=== PATIENT | female | born 1930 | race Caucasian/White ===

== ENCOUNTER 2019-06-12 15:18 | Emergency (ER) | payer MEDICARE, BC ==
[~2019-06-12] VITALS: Ht 160 cm; Wt 83.6 kg
[~2019-06-12 15:18] MED LIST: ALEVE 220MG220 MG PO; ASPI325T6 PO; ASPIRIN 81M81 MG/TA2 PO; CALTRATE 600600 MG PO; CELEBREX 200MG200 MG PO; INDERAL40 MG PO; LASIX 20MG TABL20 MG PO; MIRALAX PA17 GM/Dose PO; MYSOLINE 250MG250 MG PO; NORCO 325 MG-51 TAB PO; NORCO 325 MG-7.1 TAB PO; PRINZIDE 12.5 M1 TA1 PO; PROMETHAZINE V473 M2 PO; TRIAMCINOLONE AC0.13 TP; ULTRAM 50MG TAB50 MG PO; ZOCOR 20MG20 MG PO; ZOLOFT 50MG50 MG PO; ZOLOFT20 MG/ML PO
[2019-06-12 15:38] VITALS: TEMP 98.1
[2019-06-12 16:12] LABS: BASO % 0.4 % (0.0-2.0); EOS # 0.1 (0.0-0.7); EOS % 0.9 % (0-4.0); GRAN # 5.7 (1.4-6.5); GRAN % 74.3 % (42.2-75.2); HEMATOCRIT 47.1 % (37.0-47.0); HEMOGLOBIN 15.9 g/dl (12.5-16.0); LYMPH # 1.5 (1.2-3.4); LYMPH % 19.5 % (20.0-51.0); MEAN CELL VOLUME 97 fl (80.0-100.0); MEAN CORPUSCULAR HEMOGLOBIN 33 pg (27.0-31.0); MEAN CORPUSCULAR HGB CONC 34 g/dl (33.0-37.0); MEAN PLATELET VOLUME 9.2 fl (7.4-10.4); MONO # 0.4 (0.1-0.6); MONO % 4.8 % (1.7-9.3); PLATELET COUNT 133 K/mm3 (130-400); RED BLOOD COUNT 4.84 M/mm3 (4.10-5.30); REDCELL DISTRIBUTION WIDTH-CV 12.6 % (11.5-14.5)
[2019-06-12 16:20] LABS: ALBUMIN 4.5 gm/dL (3.5-5.0); BILIRUBIN,TOTAL 0.6 mg/dL (0.0-1.0); CALCIUM 9.9 mg/dL (8.4-10.2); CREATININE, serum 0.67 (0.52-1.25); POTASSIUM 3.9 mmol/L (3.4-5.0); TOTAL PROTEIN 7.6 gm/dL (6.4-8.2)
[2019-06-12 17:02] LABS: COLLECTION METHOD CLEAN CATCH
[2019-06-12 17:12] LABS: MUCOUS Present /lpf; PH 5 (5-8); SQUAMOUS EPITHELIAL 0-2 /hpf; URINE APPEARANCE Clear; URINE BACTERIA None Seen /hpf; URINE BILIRUBIN Positive (NEGATIVE); URINE BLOOD Negative (NEGATIVE); URINE COLOR Yellow; URINE GLUCOSE Negative (NEGATIVE); URINE KETONE Negative (NEGATIVE); URINE LEUKOCYTE ESTERASE Negative (NEGATIVE); URINE NITRATE Negative (NEGATIVE); URINE PROTEIN(semi-quant) Negative (NEGATIVE); URINE RBC 0-2 /hpf; URINE UROBILINOGEN Negative (NEGATIVE)
[2019-06-12] MEDS ORDERED: MOBIC 7.5MG7.5 MG PO (17:29)
[2019-06-12] MEDS ORDERED: CITRACAL PETITE1 TAB PO (17:31)
[2019-06-12] MEDS ORDERED: ASPIRIN 81M81 MG/TA2 PO (17:31)
[2019-06-12] MEDS ORDERED: EXELON3 MG PO (17:31)
[2019-06-12 18:08] VITALS: BP 165/76; PULSE 57
== END 2019-06-12 18:08 | disposition home or self-care (01) ==
LOC: COL.ER 15:18
PROVIDERS: Family Medicine
DX: R53.81 Other malaise (principal); R53.1 Weakness; I10 Essential (primary) hypertension; Z79.82 Long term (current) use of aspirin
CPT/HCPCS: J7030

== ENCOUNTER → 2019-07-20 | Outpatient (CLI) | payer MEDICARE, BC ==
[~2019-07-20] MED LIST changes: +CITRACAL PETITE1 TAB PO; +EXELON3 MG PO; +MOBIC 7.5MG7.5 MG PO
== END ==
LOC: COL.RAD 14:07
DX: M51.36 Other intervertebral disc degeneration, lumbar region (principal); G89.29 Other chronic pain

== ENCOUNTER → 2020-06-17 | Outpatient (CLI) | payer MEDICARE, BC | LOC: COL.LAB 10:11 | DX: Z20.822 Contact with and (suspected) exposure to COVID-19 (principal) ==